=== PATIENT | male | born 1950 | race Caucasian/White ===

== ENCOUNTER 2020-01-01 19:22 | Emergency (ER) | payer MEDICARE, OTHER ==
[~2020-01-01] VITALS: Ht 167.6 cm; Wt 79.4 kg
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
--- NOTE | 2020-01-01 19:42 | NUR ---
[employer] AT BEDSIDE SPEAKING WITH PATIENT.
[2020-01-01] MEDS ORDERED: IBUPROFEN 600 MG TABLET PO ONE ×2 (19:47→20:00)
[2020-01-01] MEDS ORDERED: HYDROCODONE/APAP 5/325MG 1 EACH TABLET ONE (19:47)
--- NOTE | 2020-01-01 19:49 | NUR ---
[employer] PRESSURE CAST AT BEDSIDE
[2020-01-01] MEDS ORDERED: HYDROCODONE/APAP 5/325MG 1 EACH TABLET PO ONE (20:00)
[2020-01-01 22:20] VITALS: BP 128/73
--- NOTE | 2020-01-01 22:20 | NUR ---
Patient discharged to home in stable condition. Written and verbal after care instructions given. Patient verbalizes understanding of instruction.
== END 2020-01-01 22:21 | disposition home or self-care (01) ==
LOC: ER 19:22
DX: M25.512 Pain in left shoulder (principal); M54.5 Low back pain; M54.2 Cervicalgia; I10 Essential (primary) hypertension; I25.2 Old myocardial infarction; Z95.5 Presence of coronary angioplasty implant and graft; V49.49XA Driver injured in collision with other motor vehicles in traffic accident, initial encounter; Y93.89 Activity, other specified; Y92.488 Other paved roadways as the place of occurrence of the external cause; Y99.8 Other external cause status
CPT/HCPCS: 72040-TC; 72110-TC; 73030-TC